=== PATIENT | female | born 1995 | race Caucasian/White ===

== ENCOUNTER 2017-05-27 18:53 | Emergency (ER) | payer OTHER ==
[2017-05-27] MEDS ORDERED: SODIUM CHLORIDE 0.9% 1,000 ML IV ONE (20:33)
[2017-05-27] MEDS ORDERED: KETOROLAC 30 MG/ML 1 ML VIAL IVP STA (20:33)
[2017-05-27] MEDS ORDERED: ONDANSETRON 4 MG/2 ML VIAL IVP STA (20:33)
--- NOTE | 2017-05-27 20:38 | ED ---
General Adult HPI - General Chief complaint: Shortness of Breath Stated complaint: RAMIRO Time Seen by Provider: 05/27/17 20:28 Source: patient Mode of arrival: wheelchair Limitations: no limitations - History of Present Illness Initial comments: 21-year-old female patient presents to the emergency department today for evaluation of midepigastric right upper quadrant abdominal pain. Patient states that this started around 5 PM this evening. She states that the pain came on it was severe and it caused her to have some shortness of breath. She states that the pain radiates into her chest and into her back. She states she did have one wine cooler to drink today. States that she did have chicken strips and the pain started approximately an hour and a half after ingestion of this food. She states she has been nauseated. She denies any vomiting. Denies any constipation or diarrhea. Denies any fevers or chills. Denies any history of similar pain. Denies any chance of . Patient denies any recent rash, shortness breath, chest pain, abdominal pain, numbness, tingling, dizziness, weakness, hematuria, dysuria, urinary urgency, urinary frequency, headache, visual changes, or any other complaints. - Related Data Previous Rx's Medication Instructions Recorded Hydrocodone/Acetaminophen [[place] 1 each PO Q6HR PRN #12 tab 06/21/14 5-325] HYDROcodone/APAP 7.5-325MG [[place] 1 each PO Q4H PRN #60 tab 07/14/14 7.5] Famotidine [Pepcid] 20 mg PO BID #60 tablet 05/27/17 Allergies Allergy/AdvReac Type Severity Reaction Status Date / Time No Known Allergies Allergy Verified 05/27/17 18:58 Review of Systems ROS Statement: Those systems with pertinent positive or pertinent negative responses have been documented in the HPI. ROS Other: All systems not noted in ROS Statement are negative. Past Medical History Past Medical History: No Reported History Additional Past Medical History / Comment(s): RIGHT UPPER ABD PAIN History of Any Multi-Drug Resistant Organisms: None Reported Past Surgical History: Cholecystectomy Past Anesthesia/Blood Transfusion Reactions: No Reported Reaction Additional Past Anesthesia/Blood Transfusion Reaction / Comment(s): NEVER HAD ANESTHESIA. Past Psychological History: Anxiety, Depression, Panic Disorder Smoking Status: Current every day smoker Past Alcohol Use History: Occasional Past Drug Use History: None Reported - Past Family History Mother Family Medical History: No Reported History General Exam Limitations: no limitations General appearance: alert, in no apparent distress, other (This is a well- developed, well-nourished adult female patient in no acute distress. Vital signs upon presentation are temperature 97.5F, pulse 122, respirations 28, blood pressure 126/79, pulse ox 100% on room air.) Eye exam: Present: normal appearance, PERRL, EOMI. Absent: scleral icterus, conjunctival injection, periorbital swelling ENT exam: Present: normal exam, mucous membranes moist Neck exam: Present: normal inspection. Absent: tenderness, meningismus, lymphadenopathy Respiratory exam: Present: normal lung sounds bilaterally. Absent: respiratory distress, wheezes, rales, rhonchi, stridor Cardiovascular Exam: Present: regular rate, normal rhythm, normal heart sounds. Absent: systolic murmur, diastolic murmur, rubs, gallop, clicks GI/Abdominal exam: Present: soft, tenderness (Midepigastric and right upper quadrant tenderness.), normal bowel sounds. Absent: distended, guarding, rebound, rigid Neurological exam: Present: alert, oriented X3, CN II-XII intact Psychiatric exam: Present: normal affect, normal mood Skin exam: Present: warm, dry, intact, normal color. Absent: rash Course Vital Signs 05/27/17 05/27/17 05/27/17 18:56 20:47 23:00 Temperature 97.5 F L Pulse Rate 122 H 60 59 L Respiratory 28 H 18 18 Rate Blood Pressure 126/79 95/63 100/59 O2 Sat by Pulse 100 100 99 Oximetry 05/27/17 23:12 Temperature 98.3 F Pulse Rate 78 Respiratory 17 Rate Blood Pressure 114/76 O2 Sat by Pulse 100 Oximetry Medical Decision Making - Medical Decision Making 21-year-old female patient presents to the emergency department today for evaluation of upper abdominal pain mostly in the midepigastric and right upper quadrant region. Physical examination did reveal tenderness over the mid epigastrium and right upper quadrant. Labs are obtained and did reveal an elevated AST at 298 and ALT at 120. Urinalysis was negative for any acute infection. Patient was hCG negative. We did obtain ultrasound of the abdomen which showed no acute abnormalities. Patient has had a cholecystectomy. I did discuss findings with the patient. States that she has had this in the past. They couldn't figure out the cause. She reports that she is currently feeling much better after receiving fluids and pain medication here in the department. We did add acute hepatitis panel. She is instructed to follow-up with her primary care physician and GI specialist as soon as possible. She is instructed to return here immediately for any new, worsening, or concerning symptoms. She verbalizes understanding and agrees with this plan. - Lab Data Result diagrams: 05/27/17 20:44 05/27/17 20:44 Lab Results 05/27/17 05/27/17 05/27/17 Range/Units 20:44 20:44 20:51 WBC 9.4 (3.8-10.6) k/uL RBC 4.25 (3.80-5.40) m/uL Hgb 12.5 (11.4-16.0) gm/dL Hct 36.1 (34.0-46.0) % MCV 85.0 (80.0-100.0) fL MCH 29.3 (25.0-35.0) pg MCHC 34.5 (31.0-37.0) g/dL RDW 12.4 (11.5-15.5) % Plt Count 312 (150-450) k/uL Neutrophils % 66 % Lymphocytes % 25 % Monocytes % 7 % Eosinophils % 0 % Basophils % 0 % Neutrophils # 6.2 (1.3-7.7) k/uL Lymphocytes # 2.4 (1.0-4.8) k/uL Monocytes # 0.7 (0-1.0) k/uL Eosinophils # 0.0 (0-0.7) k/uL Basophils # 0.0 (0-0.2) k/uL Sodium 142 (137-145) mmol/L Potassium 3.6 (3.5-5.1) mmol/L Chloride 107 (98-107) mmol/L Carbon Dioxide 25 (22-30) mmol/L Anion Gap 10 mmol/L BUN 9 (7-17) mg/dL Creatinine 0.58 (0.52-1.04) mg/dL Est GFR (CKD-EPI)AfAm >90 (>60 ml/min/1.73 sqM) Est GFR (CKD-EPI)NonAf >90 (>60 ml/min/1.73 sqM) Glucose 94 (74-99) mg/dL Calcium 9.5 (8.4-10.2) mg/dL Total Bilirubin 0.7 (0.2-1.3) mg/dL AST 298 H (14-36) U/L ALT 120 H (9-52) U/L Alkaline Phosphatase 91 (38-126) U/L Total Protein 6.8 (6.3-8.2) g/dL Albumin 4.2 (3.5-5.0) g/dL Amylase 45 (30-110) U/L Lipase 175 (23-300) U/L Urine Color Urine Appearance (Clear) Urine pH (5.0-8.0) Ur Specific [place] (1.001-1.035) Urine Protein (Negative) Urine Glucose (UA) (Negative) Urine Ketones (Negative) Urine Blood (Negative) Urine Nitrite (Negative) Urine Bilirubin (Negative) Urine Urobilinogen (<2.0) mg/dL Ur Leukocyte Esterase (Negative) Urine RBC (0-5) /hpf Urine WBC (0-5) /hpf Ur Squamous Epith Cells (0-4) /hpf Amorphous Sediment (None) /hpf Urine Mucus (None) /hpf Urine HCG, Qual Not Detected (Not Detectd) 05/27/17 Range/Units 20:51 WBC (3.8-10.6) k/uL RBC (3.80-5.40) m/uL Hgb (11.4-16.0) gm/dL Hct (34.0-46.0) % MCV (80.0-100.0) fL MCH (25.0-35.0) pg MCHC (31.0-37.0) g/dL RDW (11.5-15.5) % Plt Count (150-450) k/uL Neutrophils % % Lymphocytes % % Monocytes % % Eosinophils % % Basophils % % Neutrophils # (1.3-7.7) k/uL Lymphocytes # (1.0-4.8) k/uL Monocytes # (0-1.0) k/uL Eosinophils # (0-0.7) k/uL Basophils # (0-0.2) k/uL Sodium (137-145) mmol/L Potassium (3.5-5.1) mmol/L Chloride (98-107) mmol/L Carbon Dioxide (22-30) mmol/L Anion Gap mmol/L BUN (7-17) mg/dL Creatinine (0.52-1.04) mg/dL Est GFR (CKD-EPI)AfAm (>60 ml/min/1.73 sqM) Est GFR (CKD-EPI)NonAf (>60 ml/min/1.73 sqM) Glucose (74-99) mg/dL Calcium (8.4-10.2) mg/dL Total Bilirubin (0.2-1.3) mg/dL AST (14-36) U/L ALT (9-52) U/L Alkaline Phosphatase (38-126) U/L Total Protein (6.3-8.2) g/dL Albumin (3.5-5.0) g/dL Amylase (30-110) U/L Lipase (23-300) U/L Urine Color Yellow Urine Appearance Cloudy H (Clear) Urine pH 7.0 (5.0-8.0) Ur Specific [place] 1.008 (1.001-1.035) Urine Protein Negative (Negative) Urine Glucose (UA) Negative (Negative) Urine Ketones Negative (Negative) Urine Blood Negative (Negative) Urine Nitrite Negative (Negative) Urine Bilirubin Negative (Negative) Urine Urobilinogen 4.0 (<2.0) mg/dL Ur Leukocyte Esterase Large H (Negative) Urine RBC 1 (0-5) /hpf Urine WBC 1 (0-5) /hpf Ur Squamous Epith Cells 6 H (0-4) /hpf Amorphous Sediment Rare H (None) /hpf Urine Mucus Rare H (None) /hpf Urine HCG, Qual (Not Detectd) - Radiology Data Radiology results: report reviewed, image reviewed Ultrasound of the abdomen particularly the right upper quadrant was obtained, report was reviewed in its entirety. Impression by Dr. Leal shows cholecystectomy. No dilated ducts. No free fluid. Common bile duct is 8 mm which is probably normal postcholecystectomy. Intrahepatic bile ducts appear normal. Disposition Clinical Impression: Transaminitis, Abdominal pain Disposition: HOME SELF-CARE Condition: Good Instructions: Abdominal Pain (ED) Additional Instructions: Follow-up with your primary care physician as soon as possible for further evaluation and results of your hepatitis panel. Return here immediately for any new, worsening, or concerning symptoms. Prescriptions: Famotidine [Pepcid] 20 mg PO BID #60 tablet Referrals: Lane Stroud MD [Primary Care Provider] - 1-2 days Time of Disposition: 22:55
[2017-05-27 21:06] LABS: Amorphous Sediment,Urine Rare /hpf; Appearance,Urine Cloudy (Clear); Bilirubin,Urine Negative (Negative); Blood,Urine Negative (Negative); Color,Urine Yellow; Glucose,Urine (UA) Negative (Negative); Ketones,Urine Negative (Negative); Leukocyte Esterase,Urine Large (Negative); Mucus,Urine Rare /hpf; Nitrite,Urine Negative (Negative); Protein,Urine Negative (Negative); RBC,Urine 1 /hpf (0-5); Specific Gravity,Urine 1.008 (1.001-1.035); Squamous Epithelial Cell,Urine 6 /hpf (0-4); WBC,Urine 1 /hpf (0-5)
[2017-05-27 21:14] LABS: Basophils % (A) 0 %; Eosinophils % (A) 0 %; HCT 36.1 % (34.0-46.0); HGB 12.5 gm/dL (11.4-16.0); Lymphocytes # (A) 2.4 k/uL (1.0-4.8); Lymphocytes % (A) 25 %; MCH 29.3 pg (25.0-35.0); MCHC 34.5 g/dL (31.0-37.0); Mean Platelet Volume 7.4; Monocytes # (A) 0.7 k/uL (0-1.0); Monocytes % (A) 7 %; Neutrophils # (A) 6.2 k/uL (1.3-7.7); Neutrophils % (A) 66 %; Platelet Count 312 k/uL (150-450); RBC 4.25 m/uL (3.80-5.40); RDW 12.4 % (11.5-15.5); WBC 9.4 k/uL (3.8-10.6)
[2017-05-27 21:20] LABS: ALT 120 U/L (9-52); AST 298 U/L (14-36); Albumin 4.2 g/dL (3.5-5.0); Alkaline Phosphatase 91 U/L (38-126); Amylase 45 U/L (30-110); Anion Gap 10 mmol/L; Blood Urea Nitrogen 9 mg/dL (7-17); Calcium 9.5 mg/dL (8.4-10.2); Carbon Dioxide 25 mmol/L (22-30); Chloride 107 mmol/L (98-107); Glucose 94 mg/dL (74-99); Lipase 175 U/L (23-300); Potassium 3.6 mmol/L (3.5-5.1); Sodium 142 mmol/L (137-145); Total Bilirubin 0.7 mg/dL (0.2-1.3); Total Protein 6.8 g/dL (6.3-8.2)
--- NOTE | 2017-05-27 22:43 | US ---
EXAMINATION TYPE: US abdomen limited DATE OF EXAM: 05/27/2017 COMPARISON: 06/30/2014 CLINICAL HISTORY: Pain. Epigastric pain and nausea x 5 hours, history of cholecystectomy EXAM MEASUREMENTS: Liver Length: 13.5 cm Gallbladder Wall: surgically absent CBD: 0.8 cm Right Kidney: 11.2 x 3.5 x 4.3 cm Pancreas: visualized portions wnl, tail limited by overlying bowel gas Liver: wnl Gallbladder: surgically absent Evidence for sonographic Cotton's sign: no CBD: wnl for post cholecystectomy Right Kidney: wnl IMPRESSION: Cholecystectomy. No dilated ducts. No free fluid. Common bile duct is 8 mm which is proba colleen normal post cholecystectomy. Intrahepatic bile ducts appear normal.
[2017-05-27 23:13] VITALS: BP 114/76; PULSE 78; RESP 17; TEMP 98.3
[2017-05-28 08:14] LABS: Hepatitis A AB IgM Index 0.01; Hepatitis A Antibody IgM NEGATIVE
[2017-05-28 12:14] LABS: Hepatitis B Core IgM Non-Reactive (Non-Reactive)
== END 2017-05-27 23:15 | disposition home or self-care (01) ==
LOC: EC 18:53
DX: R10.13 Epigastric pain (principal); R10.11 Right upper quadrant pain; R74.0 Nonspecific elevation of levels of transaminase and lactic acid dehydrogenase [LDH]; F17.200 Nicotine dependence, unspecified, uncomplicated; Z90.49 Acquired absence of other specified parts of digestive tract
CPT/HCPCS: 36415; 80053; 80074; 82150; 83690; 85025; 81001; 81025; 76705; 99285; 96374; 96375; 96361; J2405; J1885

== ENCOUNTER 2017-08-05 00:26 | Emergency (ER) | payer OTHER ==
[2017-08-05 00:33] VITALS: RESP 18; TEMP 97.1
[2017-08-05] MEDS ORDERED: ONDANSETRON 4 MG/2 ML VIAL IVP STA ×2 (00:41→02:13)
[2017-08-05] MEDS ORDERED: SODIUM CHLORIDE 0.9% 1,000 ML IV ONE (00:41)
--- NOTE | 2017-08-05 00:43 | ED ---
Nausea/Vomiting/Diarrhea HPI - General Chief complaint: Nausea/Vomiting/Diarrhea Stated complaint: vomiting Time Seen by Provider: 08/05/17 00:35 Source: patient Mode of arrival: ambulatory Limitations: no limitations - History of Present Illness Initial comments: 21-year-old female patient presents to emergency department today for evaluation of vomiting and diarrhea since 10 PM. Patient denies any abdominal pain with this. States that she did take a test at home which was negative. Patient denies any recent travel or sick contacts. Denies any ingestion of questionable foods, states her family has eaten what she has eaten. She denies any fever or chills. Patient denies any recent rash, shortness breath, chest pain, back pain, numbness, tingling, dizziness, weakness , hematuria, dysuria, urinary urgency, urinary frequency, headache, visual changes, or any other complaints. - Related Data Previous Rx's Medication Instructions Recorded Hydrocodone/Acetaminophen [[place] 1 each PO Q6HR PRN #12 tab 06/21/14 5-325] HYDROcodone/APAP 7.5-325MG [[place] 1 each PO Q4H PRN #60 tab 07/14/14 7.5] Famotidine [Pepcid] 20 mg PO BID #60 tablet 05/27/17 Ondansetron [Zofran ODT] 4 mg PO Q8HR PRN #10 tab 08/05/17 Allergies Allergy/AdvReac Type Severity Reaction Status Date / Time No Known Allergies Allergy Verified 08/05/17 00:31 Review of Systems ROS Statement: Those systems with pertinent positive or pertinent negative responses have been documented in the HPI. ROS Other: All systems not noted in ROS Statement are negative. Past Medical History Past Medical History: No Reported History Additional Past Medical History / Comment(s): RIGHT UPPER ABD PAIN History of Any Multi-Drug Resistant Organisms: None Reported Past Surgical History: Cholecystectomy Past Anesthesia/Blood Transfusion Reactions: No Reported Reaction Additional Past Anesthesia/Blood Transfusion Reaction / Comment(s): NEVER HAD ANESTHESIA. Past Psychological History: Anxiety, Depression, Panic Disorder Smoking Status: Current every day smoker Past Alcohol Use History: Occasional Past Drug Use History: Marijuana - Past Family History Mother Family Medical History: No Reported History General Exam Limitations: no limitations General appearance: alert, in no apparent distress, other (This is a well- developed, well-nourished adult female patient in no acute distress. Vital signs upon presentation are temperature 97.1F, pulse 69, respirations 18, blood pressure 118/71, pulse ox 99% on room air.) Eye exam: Present: normal appearance, PERRL, EOMI. Absent: scleral icterus, conjunctival injection, periorbital swelling ENT exam: Present: normal exam, normal oropharynx, mucous membranes moist Respiratory exam: Present: normal lung sounds bilaterally. Absent: respiratory distress, wheezes, rales, rhonchi, stridor Cardiovascular Exam: Present: regular rate, normal rhythm, normal heart sounds. Absent: systolic murmur, diastolic murmur, rubs, gallop, clicks GI/Abdominal exam: Present: soft, normal bowel sounds. Absent: distended, tenderness, guarding, rebound, rigid Neurological exam: Present: alert, oriented X3, CN II-XII intact Psychiatric exam: Present: normal affect, normal mood Skin exam: Present: warm, dry, intact, normal color. Absent: rash Course Vital Signs 08/05/17 00:31 Temperature 97.1 F L Pulse Rate 69 Respiratory 18 Rate Blood Pressure 118/71 O2 Sat by Pulse 99 Oximetry Medical Decision Making - Medical Decision Making 21-year-old female patient presents to the emergency department today for evaluation of vomiting and diarrhea 2 hours. Physical examination is unremarkable. Abdomen is soft and nontender. Patient did receive IV Zofran and normal saline here in the department. States that she is feeling much improved after this. We did discuss gastroenteritis as a probable cause for her symptoms. Urinalysis did show some abnormalities, patient is on her period which does account for these elevated red cell white cell counts. We will culture this. Patient is instructed to follow-up with her primary care physician for recheck in 1-2 days. Return parameters discussed in detail. She verbalizes understanding and agrees with this plan. - Lab Data Lab Results 08/05/17 08/05/17 Range/Units 01:17 01:17 Urine Color Dark Brown Urine Appearance Cloudy H (Clear) Urine pH 6.0 (5.0-8.0) Ur Specific [place] 1.032 (1.001-1.035) Urine Protein 2+ H (Negative) Urine Glucose (UA) Negative (Negative) Urine Ketones 2+ H (Negative) Urine Blood Large H (Negative) Urine Nitrite Negative (Negative) Urine Bilirubin 1+ H (Negative) Urine Urobilinogen 4.0 (<2.0) mg/dL Ur Leukocyte Esterase Moderate H (Negative) Urine RBC >182 H (0-5) /hpf Urine WBC 23 H (0-5) /hpf Ur Squamous Epith Cells 23 H (0-4) /hpf Urine Bacteria Occasional H (None) /hpf Urine Mucus Many H (None) /hpf Urine HCG, Qual Not Detected (Not Detectd) Disposition Clinical Impression: Gastroenteritis Disposition: HOME SELF-CARE Condition: Good Instructions: Gastroenteritis (ED) Additional Instructions: Start with a clear liquid diet and advance as tolerated. Follow-up with your primary care physician for recheck in 1-2 days. Return here immediately for any new, worsening, or concerning symptoms. Prescriptions: Ondansetron [Zofran ODT] 4 mg PO Q8HR PRN #10 tab PRN Reason: Nausea Is patient prescribed a controlled substance at d/c from ED?: No Referrals: Lane Stroud MD [Primary Care Provider] - 1-2 days Time of Disposition: 02:00
[2017-08-05 01:40] LABS: Appearance,Urine Cloudy (Clear); Bacteria,Urine Occasional /hpf; Bilirubin,Urine 1+ (Negative); Blood,Urine Large (Negative); Color,Urine Dark Brown; Glucose,Urine (UA) Negative (Negative); Ketones,Urine 2+ (Negative); Leukocyte Esterase,Urine Moderate (Negative); Mucus,Urine Many /hpf; Nitrite,Urine Negative (Negative); Protein,Urine 2+ (Negative); RBC,Urine >182 /hpf (0-5); Specific Gravity,Urine 1.032 (1.001-1.035); Squamous Epithelial Cell,Urine 23 /hpf (0-4); WBC,Urine 23 /hpf (0-5)
[2017-08-05] MEDS ORDERED: ONDANSETRON 4 MG ODT STARTER PACK 2 TAB BTL PO STA (01:58)
[2017-08-05 02:11] VITALS: BP 104/55; PULSE 83
== END 2017-08-05 02:23 | disposition home or self-care (01) ==
LOC: EC 00:26
DX: K52.9 Noninfective gastroenteritis and colitis, unspecified (principal); F17.200 Nicotine dependence, unspecified, uncomplicated; Z90.49 Acquired absence of other specified parts of digestive tract
CPT/HCPCS: 99284; 96374; 96376; 96361; 81001; 81025; 87086; J2405; S0119

== ENCOUNTER → 2018-07-04 | Outpatient (CLI) | payer OTHER ==
[2018-07-04 10:04] VITALS: BP 115/83; PULSE 87; RESP 18; TEMP 96.9; BMI 17.9
--- NOTE | 2018-07-04 11:18 | P.HPOB ---
History of Present Illness H&P Date: 07/04/18 Chief Complaint: Routine gynecologic exam and IUD removal. This is a 22-year-old with an LMP of 07/02/18. The patient has a ParaGard IUD in place that was placed in 2014. Her last pelvic exam was in 2014. She states she is interested in attempting in the near future. Menses are regularly every month. She is without gynecologic complaints. Review of Systems She lost approximately 50 pounds after . She states most of the weight loss occurred during the past year. She denies respiratory, cardiac, or G.I. problems. Past Medical History Past Medical History: No Reported History Additional Past Medical History / Comment(s): She had elevated liver enzymes in the past. Past OB history: 1 vaginal delivery with preeclampsia. Past PU[employer]ET [employer]ER history: no history of STDs. History of Any Multi-Drug Resistant Organisms: None Reported Past Surgical History: Cholecystectomy Past Anesthesia/Blood Transfusion Reactions: No Reported Reaction Additional Past Anesthesia/Blood Transfusion Reaction / Comment(s): NEVER HAD ANESTHESIA. Past Psychological History: Anxiety, Depression, Panic Disorder Smoking Status: Current every day smoker (Half a pack of cigarettes per day) Past Alcohol Use History: Occasional Additional Past Alcohol Use History / Comment(s): She states he previously drank up to 6 drinks per day, but states she rarely drinks alcohol since 2017. Past Drug Use History: Marijuana Additional History: She is single and has been with her boyfriend since 2012. They live together. She does not work outside the home. - Past Family History Mother Family Medical History: Cancer Additional Family Medical History / Comment(s): Cervical cancer in her 20s. No family history of defects or mental retardation. Medications and Allergies Home Medications Medication Instructions Recorded Confirmed Type No Known Home Medications 07/04/18 07/04/18 History Allergies Allergy/AdvReac Type Severity Reaction Status Date / Time No Known Allergies Allergy Verified 08/05/17 00:31 Exam Vital Signs Temp Pulse Resp BP Pulse Ox 07/04/18 09:59 96.9 F L 87 18 115/83 100 Intake and Output 07/03/18 07/04/18 07/04/18 22:59 06:59 14:59 Other: Weight 44.452 kg Height 5'2", weight 98 pounds, BMI 17.9. This is a well-developed well-nourished thin white female who is alert and oriented times 3 in no acute distress. HEENT: Within normal limits. NECK: Supple without mass or thyromegaly. CHEST AND LUNGS: Clear to auscultation. HEART: Regular rate and rhythm. BREASTS: Are without mass or discharge. AXILLARY EXAM: Negative for adenopathy. BACK: Negative for CVA tenderness. ABDOMEN: Soft, nontender, without palpable masses. There is no organomegaly. PELVIC EXAM: Normal external genitalia. Cervix and vagina appear normal. The IUD string protruded approximately 2.5 cm. There was a small amount of menstrual blood . There is no unusual discharge. There is no cervical motion tenderness. There is no evidence of prolapse. The uterus is midposition, slightly retroverted, nongravid size and nontender. There are no palpable adnexa l masses or tenderness. RECTAL EXAM: deferred. EXTREMITIES: Nontender. Procedure: The patient is requesting the IUD be removed. The ParaGard IUD was removed with ring forceps without difficulty. IMPRESSION: 1. 22-year-old female with normal gynecologic exam was using the ParaGard IUD for control. 2. The patient is planning to attempt in the near future and the ParaGard IUD was removed today per her request. 3. History of previous heavy alcohol use in the past with history of elevated liver enzymes. PLAN: 1. Pap smear was performed. 2. Self breast awareness was discussed with the patient. 3. GC and Chlamydia screening were obtained from the cervix. 4. Preconception planning was discussed. I have stressed the importance of liver testing and evaluation prior to attempting . I have recommended that she follow up with her primary care physician, or a G.I. specialist prior to attempting . I recommended that she use condoms on a regular basis until she has had this evaluation. I have stressed the importance of avoiding substance use including alcohol and marijuana and tobacco use which can have a negative impact on and on the fetus. 5. She states she will follow-up with Dr. Shi or Dr. Gilman if she does become . 6. I have recommended a daily multivitamin with folic acid and she should start this now. 7.She was advised to return in one year for her annual well woman exam.
[2018-07-06 14:55] LABS: C. trachomatis,PCR Negative (Neg,Equiv); Chlamydia trachomatis Source Cervix; N. gonorrhoeae,PCR Negative (Neg,Equiv); Neisseria Source Cervix
== END ==
LOC: WWCWWP 09:45
PROVIDERS: ATTEND Obstetrics & Gynecology
DX: Z11.3 Encounter for screening for infections with a predominantly sexual mode of transmission (principal)
CPT/HCPCS: 87491; 87591

== ENCOUNTER 2019-05-02 10:41 | Emergency (ER) | payer OTHER ==
[2019-05-02 11:02] VITALS: RESP 18; TEMP 98.2
[2019-05-02 12:15] LABS: Glucose,Whole Blood 88 mg/dL (75-99)
--- NOTE | 2019-05-02 12:26 | ED ---
Extremity Problem HPI - General Chief complaint: Extremity Problem,Nontraumatic Stated complaint: weakness/leg aches Time Seen by Provider: 05/02/19 11:23 Source: patient, RN notes reviewed Mode of arrival: ambulatory Limitations: no limitations - History of Present Illness Initial comments: 23-year-old female presents emergency Department chief complaint of leg pain, numbness. Patient has been exhibiting bilateral leg tingling. Patient states she has a charley horse in her left leg. She was seen by urgent care was given bleed. She had no further testing. Patient denies any trauma states that she does have some mild back discomfort denies any chance . Denies any abdominal complaints no fevers chills denies any discoloration of her legs. Patient states that Gilberto has been helping - Related Data Previous Rx's Medication Instructions Recorded predniSONE 50 mg PO DAILY #4 tab 05/02/19 Allergies Allergy/AdvReac Type Severity Reaction Status Date / Time No Known Allergies Allergy Verified 05/02/19 11:00 Review of Systems ROS Statement: Those systems with pertinent positive or pertinent negative responses have been documented in the HPI. ROS Other: All systems not noted in ROS Statement are negative. Past Medical History Past Medical History: No Reported History Additional Past Medical History / Comment(s): She had elevated liver enzymes in the past. Past OB history: 1 vaginal delivery with preeclampsia. 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 History of Any Multi-Drug Resistant Organisms: None Reported Past Surgical History: Cholecystectomy Past Anesthesia/Blood Transfusion Reactions: No Reported Reaction Additional Past Anesthesia/Blood Transfusion Reaction / Comment(s): NEVER HAD ANESTHESIA. Past Psychological History: Anxiety, Depression, Panic Disorder Smoking Status: Current every day smoker Past Alcohol Use History: Occasional Past Drug Use History: Marijuana - Past Family History Mother Family Medical History: Cancer Additional Family Medical History / Comment(s): Cervical cancer in her 20s. No family history of defects or mental retardation. General Exam Limitations: no limitations General appearance: alert, in no apparent distress Head exam: Present: atraumatic, normocephalic, normal inspection Eye exam: Present: normal appearance, PERRL, EOMI. Absent: scleral icterus, con junctival injection, periorbital swelling ENT exam: Present: normal exam, normal oropharynx, mucous membranes moist Neck exam: Present: normal inspection, full ROM. Absent: tenderness, meningismus, lymphadenopathy Respiratory exam: Present: normal lung sounds bilaterally. Absent: respiratory distress, wheezes, rales, rhonchi, stridor Cardiovascular Exam: Present: regular rate (Patient was tachycardic in triage though heart rate 86 on exam), normal rhythm, normal heart sounds. Absent: systolic murmur, diastolic murmur, rubs, gallop, clicks GI/Abdominal exam: Present: soft, normal bowel sounds. Absent: distended, tenderness, guarding, rebound, rigid Extremities exam: Present: other (Bilateral lower extremity strength equal bilaterally neurovascular intact equal color equal warmth there is some mild tenderness the left knee) Skin exam: Present: warm, dry, intact, normal color. Absent: rash Course Vital Signs 05/02/19 05/02/19 11:01 11:36 Temperature 98.2 F Pulse Rate 128 H 86 Respiratory 18 18 Rate Blood Pressure 129/85 129/94 O2 Sat by Pulse 98 98 Oximetry Medical Decision Making - Medical Decision Making 23-year-old female presented for lower leg numbness and tingling. Patient has neurovascular intact there are no major findings on ultrasound or x-ray. Patient symptoms are consistent with lumbar to The we discharged in stable condition return parameters discussed. - Lab Data Lab Results 05/02/19 05/02/19 05/02/19 Range/Units 12:10 12:10 12:14 POC Glucose (mg/dL) 88 (75-99) mg/dL POC Glu Scale Clerk ID Candace Shen Urine Color Yellow Urine Appearance Cloudy H (Clear) Urine pH 6.0 (5.0-8.0) Ur Specific [place] 1.036 H (1.001-1.035) Urine Protein 1+ H (Negative) Urine Glucose (UA) Negative (Negative) Urine Ketones 2+ H (Negative) Urine Blood Negative (Negative) Urine Nitrite Negative (Negative) Urine Bilirubin Negative (Negative) Urine Urobilinogen 2.0 (<2.0) mg/dL Ur Leukocyte Esterase Negative (Negative) Urine WBC 3 (0-5) /hpf Ur Squamous Epith Cells 11 H (0-4) /hpf Urine Mucus Many H (None) /hpf Urine HCG, Qual Not Detected (Not Detectd) Disposition Clinical Impression: Lumbar radiculopathy, acute Disposition: HOME SELF-CARE Condition: Stable Instructions (If sedation given, give patient instructions): Paresthesia (ED), Lumbar Radiculopathy (ED) Additional Instructions: Please return to the Emergency Department if symptoms worsen or any other concerns. Prescriptions: predniSONE 50 mg PO DAILY #4 tab Is patient prescribed a controlled substance at d/c from ED?: No Referrals: Lane Stroud MD [Primary Care Provider] - 1-2 days Time of Disposition: 13:03
--- NOTE | 2019-05-02 12:26 | US ---
EXAMINATION TYPE: US venous doppler duplex LE LT DATE OF EXAM: 05/02/2019 12:22 PM COMPARISON: NONE CLINICAL HISTORY: pain. SIDE PERFORMED: Left TECHNIQUE: The lower extremity deep venous system is examined utilizing real time linear array sonog zak with graded compression, doppler sonography and color-flow sonography. VESSELS IMAGED: External Iliac Vein (EIV) Common Femoral Vein Deep Femoral Vein Greater Saphenous Vein * Femoral Vein Popliteal Vein Small Saphenous Vein * Proximal Calf Veins (* superficial vessels) Grayscale, color doppler, spectral doppler imaging performed of the deep veins of the left lower extr emity. There is normal flow, compressibility, vascular waveforms. Left Leg: Negative for DVT IMPRESSION: No sonographic evidence of deep venous thrombosis within the left lower extremity.
[2019-05-02 12:30] LABS: Appearance,Urine Cloudy (Clear); Bilirubin,Urine Negative (Negative); Blood,Urine Negative (Negative); Color,Urine Yellow; Glucose,Urine (UA) Negative (Negative); Ketones,Urine 2+ (Negative); Leukocyte Esterase,Urine Negative (Negative); Mucus,Urine Many /hpf; Nitrite,Urine Negative (Negative); Protein,Urine 1+ (Negative); Specific Gravity,Urine 1.036 (1.001-1.035); Squamous Epithelial Cell,Urine 11 /hpf (0-4); WBC,Urine 3 /hpf (0-5)
[2019-05-02] MEDS ORDERED: LORazepam 1 MG TAB PO STA (12:55)
--- NOTE | 2019-05-02 12:55 | XR ---
EXAMINATION TYPE: XR lumbosacral spine min 4V DATE OF EXAM: 05/02/2019 CLINICAL HISTORY: Lower extremity numbness for 5 days with no known injury. TECHNIQUE: Frontal, lateral, and oblique images of the lumbar spine are obtained. COMPARISON: None FINDINGS: There are 5 lumbar type vertebral bodies identified. The lumbar spine shows satisfactory alignment without evidence of acute fracture or dislocation. Vertebral body heights and disk space he ights are within normal limits. The oblique images appear within normal limits. The overlying soft tissue appears unremarkable. IMPRESSION: No acute fracture or malalignment is seen in the lumbar spine.
[2019-05-02 13:18] VITALS: BP 114/80; PULSE 78
== END 2019-05-02 13:16 | disposition home or self-care (01) ==
LOC: EC 10:41
DX: M54.16 Radiculopathy, lumbar region (principal); F17.200 Nicotine dependence, unspecified, uncomplicated; M62.831 Muscle spasm of calf
CPT/HCPCS: 36415; 72110; 81001; 81025; 99284

== ENCOUNTER 2019-05-03 16:25 | Emergency (ER) | payer OTHER ==
[2019-05-03 17:20] LABS: Appearance,Urine Cloudy (Clear); Bilirubin,Urine Negative (Negative); Blood,Urine Trace (Negative); Color,Urine Yellow; Glucose,Urine (UA) Negative (Negative); Ketones,Urine 2+ (Negative); Leukocyte Esterase,Urine Negative (Negative); Mucus,Urine Many /hpf; Nitrite,Urine Negative (Negative); Protein,Urine 1+ (Negative); RBC,Urine 3 /hpf (0-5); Specific Gravity,Urine 1.037 (1.001-1.035); Squamous Epithelial Cell,Urine 8 /hpf (0-4); WBC,Urine 1 /hpf (0-5)
[2019-05-03] MEDS ORDERED: KETOROLAC 30 MG/ML 1 ML VIAL IM STA (17:41)
--- NOTE | 2019-05-03 18:33 | CT ---
EXAMINATION TYPE: CT lumbar spine wo con DATE OF EXAM: 05/03/2019 COMPARISON: None HISTORY: Hip/back/groin pain with tingling. CT DLP: 405.1 mGycm Automated exposure control for dose reduction was used. Multiple axial sections were obtained from the level of T12-S2 vertebra without contrast. FINDINGS: Lumbar vertebra have normal alignment. Posterior elements are intact. There is no compression fractur e. I see no bony destructive process. Sacroiliac joints appear intact. There is no lumbar paraspinal mass. IMPRESSION: Negative lumbar spine exam.
--- NOTE | 2019-05-03 18:36 | CT ---
EXAMINATION TYPE: CT pelvis wo con DATE OF EXAM: 05/03/2019 COMPARISON: None HISTORY: Hip/back/groin pain with tingling. CT DLP: 162.1 mGycm Automated exposure control for dose reduction was used. Multiple axial sections were obtained from the iliac crest to the subtrochanteric femurs without cont rast. Proximal femurs and hip joints are intact. There is no sign of hip dysplasia. Hip joint spaces are fa irly normal. Sacroiliac joints appear normal. There is no evidence of a pelvic mass. Sacrum appears i ntact. Uterus is retroverted. There is no free fluid in the pelvis. There is no sign of pelvic mass. I see no focal bone destruction. IMPRESSION: Negative CT scan of the pelvis.
[2019-05-03] MEDS ORDERED: LORazepam 1 MG TAB PO STA (19:10)
--- NOTE | 2019-05-03 19:13 | ED ---
General Adult HPI - General Chief complaint: Back Pain/Injury Stated complaint: Leg and back tingling Time Seen by Provider: 05/03/19 16:49 Source: family Mode of arrival: ambulatory Limitations: no limitations - History of Present Illness Initial comments: 23-year-old female patient presents to the emergency department today for evaluation of tingling sensation to the left leg as well as pain to the left hip and left low back. Patient states that she's had symptoms for the last 3-4 days. Patient states that initially started with just tingling to both legs. States that the tingling has been worse on the left side. Patient states that she went to urgent care initially, then was seen here yesterday. Did have x- rays and ultrasound yesterday which were negative. She was started on a steroid. Patient states that today she saw her primary care physician states they did sensation tests which were all intact however she continued to have the numbness and tingling. Patient states that last evening she had intercourse with her boyfriend, she states that she had decreased sensation and was barely able to feel it. Patient states this afternoon she developed pain to the left low back and left hip. States that the tingling worsened and she developed pain to the top of the left foot. She denies any loss of bowel or bladder control. Denies any chance of . Denies any injury to the back. She denies history of IVDA. Patient denies any recent rash, fever, chills, shortness breath, chest pain, abdominal pain, nausea, vomiting, diarrhea, constipation, dizziness, hematuria, dysuria, urinary urgency, urinary frequency, headache, visual changes, or any other complaints. - Related Data Previous Rx's Medication Instructions Recorded predniSONE 50 mg PO DAILY #4 tab 05/02/19 Allergies Allergy/AdvReac Type Severity Reaction Status Date / Time No Known Allergies Allergy Verified 05/03/19 16:39 Review of Systems ROS Statement: Those systems with pertinent positive or pertinent negative responses have been documented in the HPI. ROS Other: All systems not noted in ROS Statement are negative. Past Medical History Past Medical History: No Reported History Additional Past Medical History / Comment(s): She had elevated liver enzymes in the past. Past OB history: 1 vaginal delivery with preeclampsia. 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 History of Any Multi-Drug Resistant Organisms: None Reported Past Surgical History: Cholecystectomy Past Anesthesia/Blood Transfusion Reactions: No Reported Reaction Additional Past Anesthesia/Blood Transfusion Reaction / Comment(s): NEVER HAD ANESTHESIA. Past Psychological History: Anxiety, Depression, Panic Disorder Smoking Status: Current every day smoker Past Alcohol Use History: Occasional Past Drug Use History: Marijuana - Past Family History Mother Family Medical History: Cancer Additional Family Medical History / Comment(s): Cervical cancer in her 20s. No family history of defects or mental retardation. General Exam Limitations: no limitations General appearance: alert, in no apparent distress, other (This is a well- developed, well-nourished, nontoxic-appearing adult female patient in no acute distress. Vital signs upon presentation are temperature 98.4F, pulse 99, respirations 16, blood pressure 126/83, pulse ox 100% on room air.) Eye exam: Present: normal appearance, PERRL, EOMI. Absent: scleral icterus, conjunctival injection, periorbital swelling ENT exam: Present: normal exam, normal oropharynx, mucous membranes moist Neck exam: Present: normal inspection, full ROM. Absent: tenderness, meningismus, lymphadenopathy Respiratory exam: Present: normal lung sounds bilaterally. Absent: respiratory distress, wheezes, rales, rhonchi, stridor Cardiovascular Exam: Present: regular rate, normal rhythm, normal heart sounds. Absent: systolic murmur, diastolic murmur, rubs, gallop, clicks GI/Abdominal exam: Present: soft, normal bowel sounds. Absent: distended, tenderness, guarding, rebound, rigid Rectal exam: Present: normal rectal tone Extremities exam: Present: normal inspection, full ROM, normal capillary refill, other (Skin lower extremities is pink, warm, dry. Cap refills less than 3 seconds. Pedal and posttibial pulses are 2+ and equal bilaterally.). Absent: tenderness, pedal edema, joint swelling, calf tenderness Back exam: Present: normal inspection. Absent: vertebral tenderness Neurological exam: Present: alert, oriented X3, CN II-XII intact, normal gait Expanded Speech: Present: fluid speech Cranial nerves: EOM's Intact: Normal, Nystagmus: Normal Sensory exam: Lower Extremity Light Touch: Normal, Lower Extremity Pin Prick: Normal, LE 2 Point Discrimination: Normal Motor strength exam: RUE: 5, LUE: 5, RLE: 5, LLE: 5 Psychiatric exam: Present: normal affect, normal mood Skin exam: Present: warm, dry, intact, normal color. Absent: rash Course Vital Signs 05/03/19 05/03/19 16:37 19:20 Temperature 98.4 F 98 F Pulse Rate 99 84 Respiratory 16 16 Rate Blood Pressure 126/83 103/70 O2 Sat by Pulse 100 98 Oximetry Medical Decision Making - Medical Decision Making 23-year-old female patient presents to the emergency department today for evaluation of lower extremity tingling worse on the left side, numbness and tingling around her groin, and left low back and hip pain. Physical examination is relatively unremarkable. She is neurologically intact with no focal deficits. Rectal tone is intact. This is the patient's third visit for similar symptoms which seem to be worsening. Groin tingling is new. We did perform pelvis and lumbar computed tomography scan. These were both normal. I did discuss findings results with the patient. With groin tingling concerning for saddle anesthesia I did recommend transfer to [facility] for emergent MRI. Patient is unable to be transferred at this time due to home life obligations. She is ambulatory, stable vital signs, neurologically intact so we will discharge at this time. She does have an appointment with her primary care physician in the morning. She is urged to discuss MRI. Return parameters discussed in detail. She verbalizes understanding and agrees with this plan. - Lab Data Lab Results 05/03/19 05/03/19 Range/Units 17:08 17:08 Urine Color Yellow Urine Appearance Cloudy H (Clear) Urine pH 6.0 (5.0-8.0) Ur Specific [place] 1.037 H (1.001-1.035) Urine Protein 1+ H (Negative) Urine Glucose (UA) Negative (Negative) Urine Ketones 2+ H (Negative) Urine Blood Trace H (Negative) Urine Nitrite Negative (Negative) Urine Bilirubin Negative (Negative) Urine Urobilinogen 2.0 (<2.0) mg/dL Ur Leukocyte Esterase Negative (Negative) Urine RBC 3 (0-5) /hpf Urine WBC 1 (0-5) /hpf Ur Squamous Epith Cells 8 H (0-4) /hpf Urine Mucus Many H (None) /hpf Urine HCG, Qual Not Detected (Not Detectd) - Radiology Data Radiology results: report reviewed, image reviewed CT lumbar spine without contrast was obtained. Report was reviewed in its entirety. Impression by Dr. Leal shows negative lumbar spine exam. CT pelvis without contrast was obtained. Report was reviewed in its entirety. Impression by Dr. Leal shows negative computed tomography scan of the pelvis. Disposition Clinical Impression: Paresthesia of lower extremity, Low back pain Disposition: HOME SELF-CARE Condition: Good Instructions (If sedation given, give patient instructions): Acute Low Back Pain (ED), Paresthesia (ED) Additional Instructions: Follow-up tomorrow with your primary care physician as you have planned. Discuss MRI for further evaluation of your symptoms. Return to the emergency department immediately for any new, worsening, or concerning symptoms. Is patient prescribed a controlled substance at d/c from ED?: No Referrals: Lane Stroud MD [Primary Care Provider] - 1-2 days Time of Disposition: 19:13
[2019-05-03 21:06] VITALS: BP 103/70; PULSE 84; RESP 16; TEMP 98
== END 2019-05-03 19:21 | disposition home or self-care (01) ==
LOC: EC 16:25
DX: R20.2 Paresthesia of skin (principal); M54.5 Low back pain; M25.552 Pain in left hip; F17.200 Nicotine dependence, unspecified, uncomplicated
CPT/HCPCS: 81001; 81025; 72192; 72131; 99284; 96372; J1885

== ENCOUNTER 2021-10-21 14:52 | Emergency (ER) | payer OTHER ==
--- NOTE | 2021-10-21 17:11 | ED ---
Female Urogenital HPI - General Chief complaint: Vaginal Bleeding Stated complaint: Female UG Source: patient Mode of arrival: ambulatory Limitations: no limitations - History of Present Illness Initial comments: Patient is a 25-year-old female currently about 12 weeks presenting with chief complaint of pelvic cramping and spotting. Patient was sent here from [facility], where the unable to detect a heartbeat and sent her here to rule out ectopic . Patient has had cramping and spotting for the last 4 days. She states it is located primarily on the right side. Admits to nausea with no vomiting. Denies any fever, chills, chest pain, shortness of breath, dysuria, hematuria, hematochezia, melena, weakness, numbness, tingling. - Related Data Previous Rx's Medication Instructions Recorded predniSONE 50 mg PO DAILY #4 tab 05/02/19 Allergies Allergy/AdvReac Type Severity Reaction Status Date / Time No Known Allergies Allergy Verified 10/21/21 16:51 Review of Systems ROS Statement: Those systems with pertinent positive or pertinent negative responses have been documented in the HPI. ROS Other: All systems not noted in ROS Statement are negative. Past Medical History Past Medical History: No Reported History Additional Past Medical History / Comment(s): She had elevated liver enzymes in the past. Past OB history: 1 vaginal delivery with preeclampsia. 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 History of Any Multi-Drug Resistant Organisms: None Reported Past Surgical History: Cholecystectomy Past Anesthesia/Blood Transfusion Reactions: No Reported Reaction Additional Past Anesthesia/Blood Transfusion Reaction / Comment(s): NEVER HAD ANESTHESIA. Past Psychological History: Anxiety, Depression, Panic Disorder Smoking Status: Vaper Past Alcohol Use History: Occasional Past Drug Use History: Marijuana - Past Family History Mother Family Medical History: Cancer Additional Family Medical History / Comment(s): Cervical cancer in her 20s. No family history of defects or mental retardation. General Exam Limitations: no limitations General appearance: alert, in no apparent distress Head exam: Present: atraumatic, normocephalic, normal inspection Eye exam: Present: normal appearance, EOMI. Absent: scleral icterus, per iorbital swelling Respiratory exam: Present: normal lung sounds bilaterally. Absent: respiratory distress, wheezes, rales, rhonchi, stridor Cardiovascular Exam: Present: regular rate, normal rhythm, normal heart sounds. Absent: systolic murmur, diastolic murmur, rubs, gallop, clicks Neurological exam: Present: alert, oriented X3, CN II-XII intact Psychiatric exam: Present: normal affect, normal mood Skin exam: Present: warm, dry, intact, normal color. Absent: rash Course Vital Signs 10/21/21 10/21/21 16:51 19:42 Temperature 98.6 F 98.2 F Pulse Rate 86 81 Respiratory 16 20 Rate Blood Pressure 132/84 128/78 O2 Sat by Pulse 99 98 Oximetry - Reevaluation(s) Reevaluation #1: I evaluated this patient at 1710 in triage. Labs and ultrasound are ordered 10/21/21 17:11 Medical Decision Making - Medical Decision Making Patient is a 25-year-old female currently approximately 12 weeks presenting with chief complaint of pelvic cramping and spotting for the last 4 days. Patient was sent here by [facility] for evaluation, fever or unable to locate heartbeat and were concerned for ectopic. Ultrasound shows single intrauterine gestation without pole seen. Findings may represent early gestation, failed cannot be excluded. Recommended serial beta hCG measurements and follow-up imaging. Simple right ovarian cysts were also noted. Patient is blood type O+. HCG quantitative was sent out. Urine shows no sign of UTI, will be sent for culture. Patient instructed to follow-up with ORDER SELECTOR. Provided with OB referral. Report back to ER with any new or worsening symptoms. Discussed return parameters answered all questions. Patient conveyed verbal understanding and agreed to the plan. I discussed this case with my attending Dr. Fontaine. - Lab Data Result diagrams: 10/21/21 17:08 10/21/21 17:08 Lab Results 10/21/21 10/21/21 10/21/21 Range/Units 16:56 17:00 17:08 WBC 8.8 (3.8-10.6) k/uL RBC 4.33 (3.80-5.40) m/uL Hgb 12.6 (11.4-16.0) gm/dL Hct 38.1 (34.0-46.0) % MCV 87.9 (80.0-100.0) fL MCH 29.2 (25.0-35.0) pg MCHC 33.2 (31.0-37.0) g/dL RDW 12.1 (11.5-15.5) % Plt Count 389 (150-450) k/uL MPV 6.9 Neutrophils % 62 % Lymphocytes % 30 % Monocytes % 6 % Eosinophils % 1 % Basophils % 1 % Neutrophils # 5.4 (1.3-7.7) k/uL Lymphocytes # 2.6 (1.0-4.8) k/uL Monocytes # 0.5 (0-1.0) k/uL Eosinophils # 0.1 (0-0.7) k/uL Basophils # 0.0 (0-0.2) k/uL PT (9.0-12.0) sec INR (<1.2) APTT (22.0-30.0) sec Sodium (137-145) mmol/L Potassium (3.5-5.1) mmol/L Chloride (98-107) mmol/L Carbon Dioxide (22-30) mmol/L Anion Gap mmol/L BUN (7-17) mg/dL Creatinine (0.52-1.04) mg/dL Est GFR (CKD-EPI)AfAm (>60 ml/min/1.73 sqM) Est GFR (CKD-EPI)NonAf (>60 ml/min/1.73 sqM) Glucose (74-99) mg/dL Calcium (8.4-10.2) mg/dL Total Bilirubin (0.2-1.3) mg/dL AST (14-36) U/L ALT (4-34) U/L Alkaline Phosphatase (38-126) U/L Total Protein (6.3-8.2) g/dL Albumin (3.5-5.0) g/dL HCG, Qual HCG, Quant mIU/mL Urine Color Yellow Urine Appearance Clear (Clear) Urine pH 6.0 (5.0-8.0) Ur Specific [place] 1.019 (1.001-1.035) Urine Protein Trace H (Negative) Urine Glucose (UA) Negative (Negative) Urine Ketones 2+ H (Negative) Urine Blood Small H (Negative) Urine Nitrite Negative (Negative) Urine Bilirubin Negative (Negative) Urine Urobilinogen <2.0 (<2.0) mg/dL Ur Leukocyte Esterase Moderate H (Negative) Urine RBC 18 H (0-5) /hpf Urine WBC 4 (0-5) /hpf Ur Squamous Epith Cells 4 (0-4) /hpf Urine Bacteria Rare H (None) /hpf Hyaline Casts 1 (0-2) /lpf Urine Mucus Moderate H (None) /hpf Blood Type O Positive Blood Type Recheck O Pos Bld Type Recheck Status No Antibody Screen NEGATIVE Spec Expiration Date 10/24/2021 - 230710/21/21 10/21/21 10/21/21 Range/Units 17:08 17:08 17:53 WBC (3.8-10.6) k/uL RBC (3.80-5.40) m/uL Hgb (11.4-16.0) gm/dL Hct (34.0-46.0) % MCV (80.0-100.0) fL MCH (25.0-35.0) pg MCHC (31.0-37.0) g/dL RDW (11.5-15.5) % Plt Count (150-450) k/uL MPV Neutrophils % % Lymphocytes % % Monocytes % % Eosinophils % % Basophils % % Neutrophils # (1.3-7.7) k/uL Lymphocytes # (1.0-4.8) k/uL Monocytes # (0-1.0) k/uL Eosinophils # (0-0.7) k/uL Basophils # (0-0.2) k/uL PT 10.5 (9.0-12.0) sec INR 1.0 (<1.2) APTT 25.2 (22.0-30.0) sec Sodium 137 (137-145) mmol/L Potassium 3.7 (3.5-5.1) mmol/L Chloride 105 (98-107) mmol/L Carbon Dioxide 25 (22-30) mmol/L Anion Gap 7 mmol/L BUN 9 (7-17) mg/dL Creatinine 0.54 (0.52-1.04) mg/dL Est GFR (CKD-EPI)AfAm >90 (>60 ml/min/1.73 sqM) Est GFR (CKD-EPI)NonAf >90 (>60 ml/min/1.73 sqM) Glucose 89 (74-99) mg/dL Calcium 9.6 (8.4-10.2) mg/dL Total Bilirubin 0.6 (0.2-1.3) mg/dL AST 23 (14-36) U/L ALT 16 (4-34) U/L Alkaline Phosphatase 56 (38-126) U/L Total Protein 7.4 (6.3-8.2) g/dL Albumin 4.7 (3.5-5.0) g/dL HCG, Qual Detected HCG, Quant 66968.5 mIU/mL Urine Color Urine Appearance (Clear) Urine pH (5.0-8.0) Ur Specific [place] (1.001-1.035) Urine Protein (Negative) Urine Glucose (UA) (Negative) Urine Ketones (Negative) Urine Blood (Negative) Urine Nitrite (Negative) Urine Bilirubin (Negative) Urine Urobilinogen (<2.0) mg/dL Ur Leukocyte Esterase (Negative) Urine RBC (0-5) /hpf Urine WBC (0-5) /hpf Ur Squamous Epith Cells (0-4) /hpf Urine Bacteria (None) /hpf Hyaline Casts (0-2) /lpf Urine Mucus (None) /hpf Blood Type Blood Type Recheck Bld Type Recheck Status Antibody Screen Spec Expiration Date Disposition Clinical Impression: Threatened miscarriage Disposition: HOME SELF-CARE Condition: Good Instructions (If sedation given, give patient instructions): Threatened Miscarriage (ED) Additional Instructions: Follow up with ORDER SELECTOR in one to 2 days. Report back to ER with any new or worsening symptoms. Is patient prescribed a controlled substance at d/c from ED?: No Referrals: Lane Stroud MD [Primary Care Provider] - 1-2 days Sowmya Ruano DO [Doctor of Osteopathic Medicine] - 1-2 days Time of Disposition: 18:55
[2021-10-21 17:23] LABS: Appearance,Urine Clear (Clear); Bacteria,Urine Rare /hpf; Bilirubin,Urine Negative (Negative); Blood,Urine Small (Negative); Color,Urine Yellow; Glucose,Urine (UA) Negative (Negative); Hyaline Casts,Urine 1 /lpf (0-2); Ketones,Urine 2+ (Negative); Leukocyte Esterase,Urine Moderate (Negative); Mucus,Urine Moderate /hpf; Nitrite,Urine Negative (Negative); Protein,Urine Trace (Negative); RBC,Urine 18 /hpf (0-5); Specific Gravity,Urine 1.019 (1.001-1.035); Squamous Epithelial Cell,Urine 4 /hpf (0-4); Urobilinogen,Urine <2.0 mg/dL (<2.0); WBC,Urine 4 /hpf (0-5)
[2021-10-21 17:25] LABS: Basophils % (A) 1 %; Eosinophils # (A) 0.1 k/uL (0-0.7); Eosinophils % (A) 1 %; HCT 38.1 % (34.0-46.0); HGB 12.6 gm/dL (11.4-16.0); Lymphocytes # (A) 2.6 k/uL (1.0-4.8); Lymphocytes % (A) 30 %; MCH 29.2 pg (25.0-35.0); MCHC 33.2 g/dL (31.0-37.0); MCV 87.9 fL (80.0-100.0); Mean Platelet Volume 6.9; Monocytes # (A) 0.5 k/uL (0-1.0); Monocytes % (A) 6 %; Neutrophils # (A) 5.4 k/uL (1.3-7.7); Neutrophils % (A) 62 %; Platelet Count 389 k/uL (150-450); RBC 4.33 m/uL (3.80-5.40); RDW 12.1 % (11.5-15.5); WBC 8.8 k/uL (3.8-10.6)
[2021-10-21 17:40] LABS: HCG,Qualitative Serum Detected
[2021-10-21 17:41] LABS: ALT 16 U/L (4-34); AST 23 U/L (14-36); African American GFR (CKD) >90 (>60 ml/min/1.73 sqM); Albumin 4.7 g/dL (3.5-5.0); Alkaline Phosphatase 56 U/L (38-126); Anion Gap 7 mmol/L; Blood Urea Nitrogen 9 mg/dL (7-17); Calcium 9.6 mg/dL (8.4-10.2); Carbon Dioxide 25 mmol/L (22-30); Chloride 105 mmol/L (98-107); Glucose 89 mg/dL (74-99); Non-African American GFR(CKD) >90 (>60 ml/min/1.73 sqM); Partial Thromboplastin Time 25.2 sec (22.0-30.0); Potassium 3.7 mmol/L (3.5-5.1); Prothrombin Time 10.5 sec (9.0-12.0); Sodium 137 mmol/L (137-145); Total Bilirubin 0.6 mg/dL (0.2-1.3); Total Protein 7.4 g/dL (6.3-8.2)
--- NOTE | 2021-10-21 18:29 | US ---
EXAMINATION TYPE: Transabdominal DATE OF EXAM: 10/21/2021 5:43 PM COMPARISON: NONE CLINICAL HISTORY: cramping, spotting, r/o ectopic. spotting EXAM PERFORMED: Transabdominal (TA) EXAM MEASUREMENTS: GESTATIONAL AGE / DATING Physician Established: Not yet established Dates by LMP: (12 weeks/3 days) EDC: 05/02/22 Dates by First Scan: no prior scan here Dates by Current Scan for: (5 weeks/5 days) - MSD - no evidence of pole at this time MATERNAL ANATOMY Uterus: 8.2 x 6.4 x 8.3cm Right Ovary: 4.7 x 4.5 x 2.5cm Left Ovary: 3.3 x 1.9 x 1.9cm Post CDS / Adnexa: appears wnl Presence of free fluid: no Presence of corpus luteal cyst: 2 cystic areas right ovary = 2.5cm and 3.3cm GESTATION / SURVEY MSD: 1.0cm (5 weeks/5 days) Yolk Sac (normal less than 6mm): 0.4cm IUP: no evidence of pole at this time Date of LMP: 07/26/21 Beta HcG (if available): Not available at this time IMPRESSION: Single intrauterine gestation without pole seen. Findings may represent early gestation. Failed cannot be excluded. Recommend serial beta hCG measurement and follow-up imaging as indicat ed. Simple right ovarian cysts.
[2021-10-21 19:42] VITALS: BP 128/78; PULSE 81; RESP 20; TEMP 98.2
== END 2021-10-21 19:41 | disposition home or self-care (01) ==
LOC: EC 14:52
DX: O20.0 Threatened abortion (principal); Z3A.12 12 weeks gestation of pregnancy; F41.9 Anxiety disorder, unspecified; F32.A Depression, unspecified; F17.290 Nicotine dependence, other tobacco product, uncomplicated; F12.90 Cannabis use, unspecified, uncomplicated
CPT/HCPCS: 36415; 76801; 80053; 81001; 84702; 84703; 85025; 85610; 85730; 86850; 86900; 86901; 99284

== ENCOUNTER → 2022-03-03 | Outpatient (CLI) | payer OTHER ==
--- NOTE | 2022-03-03 18:30 | CT ---
EXAMINATION TYPE: CT abdomen pelvis w con DATE OF EXAM: 03/03/2022 COMPARISON: 05/03/2019 INDICATION: LLQ pain stat hold and call DLP: 354.10 mGycm, Automated exposure control for dose reduction was used. CONTRAST: 70 mL of Isovue 300. Study performed with Oral Contrast TECHNIQUE: Axial images were obtained from above the diaphragm to the pubic rami in the axial plane a t 5 mm thick sections. Reconstructed images are reviewed on the computer in the coronal plane. FINDINGS: Limited CT sections are obtained the lung bases. The lung bases are clear. CT ABDOMEN: Liver: Normal Spleen: Normal Pancreas: Normal Adrenal glands: The adrenal glands are normal. Gallbladder: Not identified . There is been a prior cholecystectomy. Kidneys: No masses are evident. No hydronephrosis is present. No cysts are present. Delayed images were obtained through the kidneys, which remain unremarkable. Aorta: Normal Inferior vena cava: Normal. CT PELVIS: No diverticulitis is evident. Very subtle change may be through the proximal to mid sigmoid colon. Correlate for mild colitis. [place] l otherwise appears within normal limits. There are loops of bowel which are incompletely distended o r lack oral contrast limiting their evaluation. Appendix: Normal as visualized. Urinary bladder: Normal. Genitourinary structures: Uterus appears normal. Adnexal regions are normal. Osseous structures: No suspicious lytic or sclerotic lesions. IMPRESSIONS: 1. Very minimal changes within the proximal to mid sigmoid colon could be some mild underlying colit is. No acute abdomen abnormality is otherwise evident.
== END | disposition home or self-care (01) ==
LOC: RADCTMAIN 15:21
PROVIDERS: ATTEND Family Medicine
DX: R10.32 Left lower quadrant pain (principal); R10.12 Left upper quadrant pain
CPT/HCPCS: 74177; Q9967